=== PATIENT | female | born 1950 ===

== ENCOUNTER 2017-08-05 08:07 | Day surgery (SDC) | payer MEDICARE ==
[2017-08-01 12:44] VITALS: BMI 30.4
[2017-08-05] MEDS ORDERED: HEPARIN-NS 5,000 UNITS/500 ML 5,000 UNIT/500 ML BAG IV ONE (09:55)
[2017-08-05] MEDS ORDERED: Lidocaine Hydrochloride 10 ML INJ ONE (09:55)
[2017-08-05] MEDS ORDERED: ceFAZolin 1 gm in NS 1 GM/100 ML BAG IVPB ONE (09:57)
--- NOTE | 2017-08-05 10:09 | CP.SDSHP ---
Same Day Surgery H & P - History Proposed Procedure: Right Port placement Pre-Op Diagnosis: Left breast cancer - Allergies Allergies: Allergies Sulfa (Sulfonamide Antibiotics) Allergy (Severe, Verified 05/06/15 12:20) RASH - Physical Exam Vital Signs: Vital Signs 08/05/17 09:00 Temperature 98.5 F Pulse Rate 79 Respiratory 20 Rate Blood Pressure 117/72 O2 Sat by Pulse 98 Oximetry Mental Status: Alert & Oriented x3 Neuro: WNL Heart: WNL Lungs: WNL - Impression Impression: Pt with recurrent left breast cancer refered for port placement for chemotherapy. Plan right IJV port. Informed consent obtained and risk of bleeding, infection, vessel injury explained to the patient. Pt. Evaluated Today:Candidate for Anesthesia & Procedure: Yes (ASA 3 Malampati 3) Short Stay Discharge - Short Stay Discharge Admitting Diagnosis/Reason for Visit: BREAST CA Disposition: HOME/ ROUTINE
[2017-08-05] MEDS ORDERED: Propofol 10 mg/ml Inj (20 ML) ONE (10:25)
[2017-08-05] MEDS ORDERED: Midazolam 2 MG/2 ML VIAL ONE (10:25)
--- NOTE | 2017-08-05 11:19 | PCM.SURG1 ---
Surgeon's Initial Post Op Note - Surgeon's Notes Surgeon: Joseluis Chow MD Director Of People: NONE Type of Anesthesia: IV Sedation Pre-Operative Diagnosis: Breast cancer Operative Findings: US showed a patent right IJV Post-Operative Diagnosis: Breast cancer Operation Performed: Right chest port placement Specimen/Specimens Removed: None Estimated Blood Loss: EBL {In ML}: 3 Blood Products Given: N/A Drains Used: No Drains Post-Op Condition: Good Date of Surgery/Procedure: 08/05/17 Time of Surgery/Procedure: 10:55
[2017-08-05] MEDS ORDERED: Lactated Ringer's 500 ML IV SCH (11:30)
[2017-08-05 13:13] VITALS: RESP 16
[2017-08-05 13:47] VITALS: BP 125/52; PULSE 76; TEMP 97.6; O2SAT 99
== END 2017-08-05 13:59 | disposition home or self-care (01) ==
LOC: C.SDS 08:07
PROVIDERS: ATTEND Radiology Vascular & Interventional Radiology
DX: C50.912 Malignant neoplasm of unspecified site of left female breast (principal); C79.51 Secondary malignant neoplasm of bone
CPT/HCPCS: 36561; J0690; J1644; J2250; J2704; J3010